=== PATIENT | male | born 1985 | race Caucasian/White ===

== ENCOUNTER 2017-02-13 12:07 | Emergency (ER) | payer OTHER ==
[~2017-02-13] VITALS: Ht 175.3 cm; Wt 114.9 kg
[~2017-02-13 12:07] MED LIST: MUCUS ER600 MG PO; NOHOMEMEDS; PROAIR HFA8.5 GM IH; ZITHROMAX Z-PA250 MG PO; ZYRTEC10 M2 PO
[2017-02-13] MEDS ORDERED: PREDNISONE20 MG PO (13:48)
[2017-02-13] MEDS ORDERED: VENTOLIN HFA18 GM IH (14:36)
[2017-02-13 14:53] VITALS: BP 179/87
== END 2017-02-13 15:08 | disposition home or self-care (01) ==
LOC: EME 12:07
DX: J45.901 Unspecified asthma with (acute) exacerbation (principal)
CPT/HCPCS: 71020; 80048; 85027; 94640; 99281; 99284; J7512

== ENCOUNTER 2017-09-29 12:07 | Emergency (ER) | payer OTHER ==
[~2017-09-29] VITALS: Ht 175.3 cm; Wt 109.5 kg
[~2017-09-29 12:07] MED LIST changes: +PREDNISONE20 MG PO; +VENTOLIN HFA18 GM IH
[2017-09-29 13:47] LABS: BASOPHIL (%) 0.3 % (0-1); EOSINOPHIL (%) 3.6 % (0-5); EOSINOPHIL COUNT 0.2 K/uL (0-0.3); HEMATOCRIT 43.2 % (38.0-50.0); HEMOGLOBIN 15.1 G/DL (12.5-16.6); IMMATURE GRANULOCYTE (%) 0.2 % (0.0-0.7); LYMPHOCYTE (%) 27.2 % (15-42); LYMPHOCYTE COUNT 1.7 K/uL (1.0-2.8); MCH 30.1 PG (29.0-34.0); MCV 86.2 FL (86-99); MONOCYTE (%) 7.9 % (3-12); MONOCYTE COUNT 0.5 K/uL (0-0.8); NEUTROPHIL (%) 60.8 % (45-76); NEUTROPHIL COUNT 3.9 K/uL (1.8-6.4); PLATELET COUNT 204 K/uL (156-360); RBC DIS.WIDTH-CV 12.1 % (11.8-14.6); RBC DIS.WIDTH-SD 38.2 % (39-53); RED BLOOD COUNT 5.01 M/uL (4.00-5.50); WHITE BLOOD COUNT 6.4 K/uL (4.1-10.2)
[2017-09-29 13:54] LABS: ALBUMIN 4.4 g/dL (3.2-4.8)
[2017-09-29 13:55] LABS: CHLORIDE 105 mEq/L (99-109); POTASSIUM 4.4 mEq/L (3.7-5.4); SODIUM 140 mEq/L (136-147)
[2017-09-29 13:57] LABS: GLUCOSE 101 mg/dL (70-99); TOTAL PROTEIN 6.8 g/dL (6.4-8.3)
[2017-09-29 13:59] LABS: TOTAL BILIRUBIN 0.5 mg/dL (0.0-1.0)
[2017-09-29 14:01] LABS: ALKALINE PHOSPHATASE 69 IU/L (3-129); CREATININE 1.1 mg/dL (0.6-1.3); GFR ESTIMATE (CALCULATED) > 59 mL/min/ (58.99-99999)
[2017-09-29 14:02] LABS: AST (GOT) 23 IU/L (2-34); UREA NITROGEN (BUN) 10 mg/dL (9-23)
[2017-09-29 14:04] LABS: ALT (GPT) 22 IU/L (3-49)
[2017-09-29] MEDS ORDERED: INDOCIN50 MG PO (14:32)
[2017-09-29] MEDS ORDERED: LIDODERM 5% P1 PATCH TD (14:33)
[2017-09-29] MEDS ORDERED: VALIUM2 MG PO (14:33)
[2017-09-29 14:59] LABS: HEMOGLOBIN A1c (GLYCOHEMOGLOB) 5.5 % (Below 5.7)
[2017-09-29 16:02] VITALS: BP 123/86
[2017-09-29 18:07] LABS: THYROTROPIN (TSH) 0.73 MIU/L (0.4-5.5)
[2017-09-29 18:36] LABS: HDL CHOLESTEROL 34 MG/DL (Desirable>=40); LDL CHOLESTEROL 117 mg/dL (Desirable<100); NON-HDL CHOLESTEROL 143 mg/dL (Desirable<160); TOTAL CHOLESTEROL 177 mg/dL (Desirable<200); TRIGLYCERIDES 130 MG/DL (Normal: <150)
== END 2017-09-29 16:03 | disposition home or self-care (01) ==
LOC: RME 12:07 → EME 12:07 → RME 16:03
PROVIDERS: Physician Assistant
DX: S39.92XA Unspecified injury of lower back, initial encounter (principal); S39.012A Strain of muscle, fascia and tendon of lower back, initial encounter; R03.0 Elevated blood-pressure reading, without diagnosis of hypertension; R94.31 Abnormal electrocardiogram [ECG] [EKG]; J45.909 Unspecified asthma, uncomplicated; X50.9XXA Other and unspecified overexertion or strenuous movements or postures, initial encounter
CPT/HCPCS: 80048; 80053; 80061; 81003; 82306; 83036; 84443; 85025; 85027; 93005; 99281; 99284; J1885

== ENCOUNTER 2017-11-19 08:09 | Emergency (ER) | payer OTHER ==
[~2017-11-19] VITALS: Ht 175.3 cm; Wt 100.6 kg
[~2017-11-19 08:09] MED LIST changes: +INDOCIN50 MG PO; +LIDODERM 5% P1 PATCH TD; +VALIUM2 MG PO
[2017-11-19] MEDS ORDERED: ZITHROMAX Z-PA250 MG PO (10:35)
[2017-11-19] MEDS ORDERED: PREDNISONE20 MG PO (10:35)
[2017-11-19] MEDS ORDERED: MUCINEX DM ER1 EACH PO (10:35)
[2017-11-19 11:48] VITALS: BP 144/83
== END 2017-11-19 11:57 | disposition home or self-care (01) ==
LOC: EME 08:09
DX: J40 Bronchitis, not specified as acute or chronic (principal); R00.0 Tachycardia, unspecified
CPT/HCPCS: 71046; 93005; 94640; 99281; 99285; J7512